=== PATIENT | female | born 1935 | race Caucasian/White ===

== ENCOUNTER → 2016-09-11 | Outpatient (CLI) | payer MEDICARE ==
[2015-09-27 11:00] VITALS: BP 117/45
[~2016-09-11] MED LIST: ACET650S19 PO; AMLO5TAB2 PO; ATOR10TA60 PO; BISA10SU55 RC; ENOX30DI3 SQ; FAMO10TA69 PO; GABA-585 PO; GUAI-297 PO; HYDR12.58 PO; LISI-334 PO; LISI-338 PO; LISI2.5T PO; MAGN400O4 PO; METF500T4 PO; METO25TA4 PO; VALA500T5 PO
--- NOTE | 2016-09-11 16:24 | KCIC ---
PROCEDURE Three views right 3rd finger dated 09/11/16. HISTORY Pain after injury 2 days ago. Slammed door. TECHNIQUE Three views obtained. COMPARISON None. FINDINGS Focal soft tissue swelling at the PIP joint 3rd finger. No underlying displaced fracture. No bony destructive process or periostitis. Mild to moderate degenerate change at the DIP joint and PIP joints throughout. Moderate arthrosis 1st carpometacarpal joint. IMPRESSION - Soft tissue swelling at the 3rd PIP joint with some no evidence of underlying displaced fracture. - Degenerative changes as described above. Electronically signed by: Frankie Bear (Sep 11, 2016 16:22:40)
== END | disposition home or self-care (01) ==
LOC: KCIC 15:40
PROVIDERS: ATTEND Nurse Practitioner Family
DX: M79.644 Pain in right finger(s) (principal); M25.441 Effusion, right hand
CPT/HCPCS: 73140

== ENCOUNTER → 2018-06-10 | Outpatient (CLI) | payer MEDICARE ==
[2015-09-27 11:00] VITALS: BP 117/45
[~2018-06-10] MED LIST changes: +ACET650S PO; -ACET650S19 PO; -AMLO5TAB2 PO; +AMLO5TAB7 PO; -MAGN400O4 PO; +MAGN400O7 PO; +METF500T16 PO; -METF500T4 PO
--- NOTE | 2018-06-10 13:49 | CARD ---
MR#: [id number] Date of Study: 06/10/2018 Ordering Physician: BILL BEAVERS, Referring Physician: BILL BEAVERS, Tech: Zayda Bloom VIDYA APPROVED REPORT EXAM: Two-dimensional and M-mode echocardiogram with Doppler and color Doppler. Other Information Quality : AverageHR: 80bpm Rhythm : NSR INDICATION Murmur 2D DIMENSIONS RVDd2.9 (2.9-3.5cm)Left Atrium(2D)2.6 (1.6-4.0cm) IVSd1.5 (0.7-1.1cm)Aortic Root(2D)2.5 (2.0-3.7cm) LVDd3.6 (3.9-5.9cm)LVOT Diameter1.7 (1.8-2.4cm) PWd0.9 (0.7-1.1cm)LVDs1.7 (2.5-4.0cm) FS (%) 52.2 %SV45.3 ml LVEF(%)84.1 (>50%) M-Mode DIMENSIONS Left Atrium(MM)3.89 (2.5-4.0cm)Aortic Root2.76 (2.2-3.7cm) Aortic Valve AoV Peak Rupesh.149.9cm/sAoV VTI35.1cm AO Peak GR.9.0mmHgLVOT Peak Rupesh.109.2cm/s AO Mean GR.5mmHgAVA (VMAX)1.61cm2 GINNY (VTI)1.60cm2 Mitral Valve MV E Lmpmgmpk297.7cm/sMV E Peak Gr.9mmHg MV DECEL [id number] A Ahtaicmo673.6cm/s MV E Mean Gr.4mmHgE/A Ratio0.7 MV A [id number] Pulmonary Valve PV Peak Dboijlwf844.8cm/s Tricuspid Valve TR P. Ldxplyvn049fv/sRAP OWEAEGJZ4neFt TR Peak Gr.26zyLlJTRR63oeLr Pulmonary Vein S1 Lcgqbzup25.8cm/sD2 Wehfskio54.4cm/s PVa sthforxe75uojt LEFT VENTRICLE The left ventricle is normal size. Proximal septal thickening is noted. The left ventricle is hyperdy namic. The Ejection Fraction is >70%. There is normal LV segmental wall motion. Transmitral Doppler f low pattern is Grade I-abnormal relaxation pattern. RIGHT VENTRICLE The right ventricle is normal size. There is normal right ventricular wall thickness. The right ventr icular systolic function is normal. ATRIA The left atrium is borderline dilated. The right atrium size is normal. The interatrial septum is int act with no evidence for an atrial septal defect or patent foramen ovale as noted on 2-D or Doppler i maging. AORTIC VALVE The aortic valve is calcified but opens well. The aortic valve is trileaflet. Doppler and Color Flow revealed no significant aortic regurgitation. There is no significant aortic valvular stenosis. MITRAL VALVE Mitral annular calcification is mild to moderate. There is systolic anterior motion of the mitral macey ve. There is no evidence of mitral valve prolapse. There is mild mitral valve stenosis. Calculated mi tral valve area is 1.7 cm2 with maximum pressure gradient of 9 mmHg and mean pressure gradient of 4 m mHg. Doppler and Color-flow revealed trace mitral regurgitation. TRICUSPID VALVE The tricuspid valve is normal in structure and function. There is mild tricuspid regurgitation. The P A pressure was estimated at 44 mmHg. There is no tricuspid valve prolapse or vegetation. There is no tricuspid valve stenosis. PULMONIC VALVE Pulmonic valve not well visualized. GREAT VESSELS The aortic root is normal in size. The ascending aorta is normal in size. The IVC is normal in size a nd collapses >50% with inspiration. PERICARDIAL EFFUSION There is no evidence of significant pericardial effusion. Critical Notification Critical Value: No <Conclusion> The left ventricle is hyperdynamic. The Ejection Fraction is >70%. There is normal LV segmental wall motion. Transmitral Doppler flow pattern is Grade I-abnormal relaxation pattern. There is mild mitral valve stenosis with mean gradient 4 mm Hg.. There is mild tricuspid regurgitation. The PA pressure was estimated at 44 mmHg. There is no evidence of significant pericardial effusion. Signed by : Wojciech Fry, Electronically Approved : 06/10/2018 13:47:08
== END | disposition home or self-care (01) ==
LOC: ECHO 12:53
PROVIDERS: ATTEND Family Medicine
DX: I08.1 Rheumatic disorders of both mitral and tricuspid valves (principal)
CPT/HCPCS: 93306

== ENCOUNTER → 2018-06-12 | Outpatient (CLI) | payer MEDICARE ==
[2015-09-27 11:00] VITALS: BP 117/45
[~2018-06-12] MED LIST changes: +AMLO5TAB10 PO; -AMLO5TAB7 PO
--- NOTE | 2018-06-12 10:39 | RAD ---
Exam : Carotid Duplex with Grayscale Ultrasound and Spectral and Color Doppler Analysis 06/12/2018 10:28 AM Clinical Indications: ARTERIOSCLEROSIS Comparison study: Carotid ultrasound: December 08, 2013. RS Compliance Statement - Stenosis calculations for CT, MR and conventional angiography are based upon measurement of the distal ICA diameter in accordance with the NASCET methodology. Stenosis calculations for carotid ultrasound studies are derived from validated velocity criteria which are known to correlate with the NASCET methodology. Findings: The common, internal and external carotid arteries were examined by grayscale, color and spectral Doppler ultrasound. There is moderate diffuse atherosclerotic vascular disease. More bulky atherosclerotic plaque is seen in the right carotid bulb. The ostium of the left ICA is difficult to visualize secondary to shadowing plaque. The following are the velocities and ratios in the carotid arteries on both sides: RIGHT ICA PV: 420 cm/sec RIGHT CCA PV: 69cm/sec RIGHT ICA ED: 65cm/sec RIGHT IC/CCPV: 6.1 RIGHT VERTEBRAL: antegrade flow LEFT ICA PV: 134cm/sec LEFT CCA PV: 110cm/sec LEFT ICA ED: 24cm/sec LEFT IC/CCPV: 1.2 LEFT VERTEBRAL: antegrade flow <50% ICA Stenosis: PSV < 125cm/s (EDV < 40cm/s; SVR < 2.0) 50-69% ICA Stenosis: PSV < 125-229cm/s (EDV 40-99cm/s; SVR 2.0-3.9) >70% ICA Stenosis: PSV > 230cm/s (EDV >100cm/s; SVR >4.0) Impression: 1. Greater than 70% , proximal right internal carotid artery. Further characterization with CTA recommended. 2. There is limited visualization of the left ICA ostium. Velocity measurements suggest at least 50-70 percent stenosis in the left internal carotid artery. Attention on CTA recommended. 3. Diffuse atherosclerotic vascular disease Electronically signed by: Feroz Becerra MD (06/12/2018 10:34 AM) [id number]
--- NOTE | 2018-06-12 12:37 | RAD ---
Complete abdominal ultrasound 06/12/2018 9:10 AM Clinical History: Abdominal bruit Technique: Ultrasound examination of the abdomen was performed, and multiple static images were submitted for review. Comparison: Abdominal CT SeptemberSeptember 19 2015. Findings: Pancreas is poorly visualized. Aorta and IVC are poorly visualized. Liver measures 14 cm longitudinally. Portal venous flows normal direction. The liver demonstrates a mildly increased echotexture. Hepatic steatosis not excluded. The the common bile duct is poorly visualized. Visualized CBD measures up to 8 mm in diameter which is within normal limits given patient age and prior removal of the gallbladder. Right kidney is unremarkable in appearance measuring 9.5 cm in length. The spleen is normal in size during 7.5 cm in length. Left kidney is somewhat echogenic in appearance with areas of thinning cortex measuring 9 cm in length. There is a renal atrophy on the left are noted on prior CT scan. IMPRESSION: 1. No sonographic evidence of acute intra-abdominal abnormality 2. Possible mild hepatic steatosis 3. Mild left renal atrophy 4. Based on provided history, is there is concern for an abdominal aortic aneurysm or other vascular pathology, CTA may be helpful for further characterization. The patient has known significant atherosclerotic vascular calcification however no aneurysm is seen on prior CT from September 2015. Electronically signed by: Feroz Becerra MD (06/12/2018 12:33 PM) [id number]
== END ==
LOC: US 09:01
PROVIDERS: ATTEND Family Medicine
DX: I65.23 Occlusion and stenosis of bilateral carotid arteries (principal); I12.9 Hypertensive chronic kidney disease with stage 1 through stage 4 chronic kidney disease, or unspecified chronic kidney disease; N18.3 Chronic kidney disease, stage 3 (moderate)
CPT/HCPCS: 76700; 93880

== ENCOUNTER → 2021-01-23 | Outpatient (CLI) | payer MEDICARE ==
[2021-01-19 15:00] VITALS: BP 134/50
[~2021-01-23] MED LIST changes: +AMLO-186 PO; -AMLO5TAB10 PO; +DOCU-109 PO; +FAMO-152 PO; -FAMO10TA69 PO; +LACT1CAP19 PO; -LISI-334 PO; -LISI-338 PO; +LISI-517 PO; -LISI2.5T PO; +LISI2.5T12 PO; +LISI20TA18 PO; +LOPE2TAB27 PO; +PANT40TA77 PO; +PSYL0.5215 PO
[2021-01-23 15:22] LABS: BASO # 0.1 x10^3/uL (0.0-0.2); BASO % 1 % (0-3); EOS # 0.1 x10^3/uL (0.0-0.7); EOS % 1 % (0-3); HEMATOCRIT 37.5 % (36.0-47.0); HEMOGLOBIN 12.3 g/dL (12.0-15.5); LYMPH # 1.6 x10^3/uL (1.0-4.8); LYMPH % 15 % (24-48); MEAN CORPUSCULAR HEMOGLOBIN 32 pg (25-35); MEAN CORPUSCULAR HGB CONC 33 g/dL (31-37); MEAN CORPUSCULAR VOLUME 96 fL (79-100); MONO # 0.9 x10^3/uL (0.0-1.1); MONO % 8 % (0-9); NEUT # 8.4 x10^3/uL (1.8-7.7); NEUT % 76 % (31-73); PLATELET COUNT 331 x10^3/uL (140-400); RED BLOOD COUNT 3.92 x10^6/uL (3.50-5.40); RED CELL DISTRIBUTION WIDTH 16.7 % (11.5-14.5); WHITE BLOOD COUNT 11.1 x10^3/uL (4.0-11.0)
[2021-01-23 16:22] LABS: CALCIUM 8.8 mg/dL (8.5-10.1); GFR 52.4; POTASSIUM 4.7 mmol/L (3.5-5.1)
[2021-01-23 16:23] LABS: ALBUMIN 2.6 g/dL (3.4-5.0); ALBUMIN/GLOBULIN RATIO 0.7 (1.0-1.7); TOTAL BILIRUBIN 0.7 mg/dL (0.2-1.0); TOTAL PROTEIN 6.3 g/dL (6.4-8.2)
== END ==
LOC: ONCLAB 14:55
PROVIDERS: ATTEND Internal Medicine Hematology & Oncology
DX: C83.33 Diffuse large B-cell lymphoma, intra-abdominal lymph nodes (principal)
CPT/HCPCS: 36415; 80053; 83615; 85025

== ENCOUNTER → 2021-01-27 | Outpatient (CLI) | payer MEDICARE ==
[2021-01-19 15:00] VITALS: BP 134/50
--- NOTE | 2021-01-27 13:35 | RAD ---
EXAM: Dual modality PET-CT Scan DATE: 01/27/2021 RADIOPHARMACEUTICAL: 15 mCi F-18 fluorodeoxyglucose (FDG) IV. CLINICAL HISTORY: Lymphoma staging. COMPARISON: 01/18/2021 TECHNIQUE: Approximately 45 minutes after tracer administration, routine, attenuation-corrected Posit paddy Emission Tomography (PET) images were obtained from the level of the base of the skull through th e level of the mid thighs. Tomographic reconstructions are reviewed in coronal, transaxial and sagitt al planes. Non-contrast CT imaging was performed for attenuation correction and localization purpose s only. These images do not constitute a diagnostic-quality CT examination and were not used to diag nose disease independently of the PET images. The blood glucose level was 90 mg/dL at the time of FDG administration. *One or more of the following individualized dose reduction techniques were utilized for this examina tion: 1. Automated exposure control. 2. Adjustment of the mA and/or kV according to patient size. 3. Use of iterative reconstruction technique. FINDINGS: There is intense radiotracer activity associated with conglomerate lymphadenopathy througho ut the root of the mesentery. The largest conglomerate of lymph nodes within the mesentery measures a pproximately 9.0 cm with a maximum SUV of 18.2. The additional areas of mesenteric lymphadenopathy de monstrated in maximum SUV of 15.5. There is conglomerate radiotracer avid lymphadenopathy within the left retroperitoneum with a maximum SUV of 15.7 and within the left retrocrural distribution with an SUV of 18.8 and within the left distal paraesophageal distribution with an SUV of 20.2. There is no a bnormal radiotracer activity involving the mediastinum, bilateral melissa, neck, axillae, iliac chain or inguinal regions. There is a small focus of increased radiotracer activity within SUV of 4.4 associa herman with a 1.3 cm nodule within the subcutaneous fat at the posterior base of the left neck overlying the trapezius muscle. There is expected tracer activity within the bowel and renal collecting system . The CT portion of the exam demonstrates conglomerate lymphadenopathy within the root of the mesentery measuring approximately 9 cm in maximum dimension and difficult to separate from adjacent loops of b owel. This lymphadenopathy is encased traversing abdominal aortic branch vessels. There is additional conglomerate lymphadenopathy within the left descending thoracic periaortic and retrocrural distribu tion as well as left superior retroperitoneum. There is no lymphadenopathy involving the neck, medias tinum, melissa, axillae, right retroperitoneum, iliac bifurcation or inguinal regions. There are moderate to large left and small right pleural effusions. There is partial left lower lobe collapse. There is emphysema. There is nonspecific groundglass opacity within both lungs likely due t o interstitial infiltrate or congestion. There are calcified granulomas and there is pleural parenchy mal scarring. The heart is normal in size. There is aortic and aortic branch vessel atherosclerosis. There is dense calcification of the mitral valve annulus. The visualized portions of the brain demonstrate no mass effect or midline shift. There is heavily calcified plaque involving the carotid bifurcations. No thy roid lesion is seen. No hepatic lesion is seen. The gallbladder is absent. There is biliary ductal dilatation likely due t o reservoir effect. There is a small proximal duodenal diverticulum. No convincing pancreatic lesion is seen, difficult to assess in the absence of contrast. The spleen is normal in size. No adrenal gla nd lesion is seen. There is renal atrophy and renal cortical scarring. No abnormally dilated loop of bowel is seen. There is distal colonic diverticulosis. The bladder, uterus and adnexal regions are un remarkable. There is degenerative change throughout the spine and involving both shoulders and hips. There is incidental torus palatini. There is no acute or suspicious osseous finding. There is bone de mineralization. IMPRESSION: 1. Conglomerate radiotracer avid lymphadenopathy involving the mesentery, left retroperitoneum, and l eft retrocrural and left distal paraesophageal distributions with maximum SUVs ranging from 15.5-20.2 as described in detail above. This is consistent with reported lymphoma. 2. No evidence of radiotracer avid lymphadenopathy involving the neck, mediastinum, melissa, axillary or inguinal regions or iliac chain. 3. Small radiotracer avid nodule within the posterior base of the left neck subcutaneous fat overlyin g the trapezius muscle with an SUV of 4.4. This may be a lymph node or inflammatory/infectious in jeremy ology. 4. Please refer to the above report for additional findings regarding the non-PET portion of the exam . Electronically signed by: Gabi Felix MD (01/27/2021 1:32 PM) [id number]
== END ==
LOC: PETSC 10:30
PROVIDERS: ATTEND Internal Medicine Hematology & Oncology
DX: C83.33 Diffuse large B-cell lymphoma, intra-abdominal lymph nodes (principal); I34.0 Nonrheumatic mitral (valve) insufficiency; J43.9 Emphysema, unspecified; J90 Pleural effusion, not elsewhere classified; J84.10 Pulmonary fibrosis, unspecified; I65.29 Occlusion and stenosis of unspecified carotid artery; I70.0 Atherosclerosis of aorta; N26.1 Atrophy of kidney (terminal); K57.10 Diverticulosis of small intestine without perforation or abscess without bleeding; Z90.49 Acquired absence of other specified parts of digestive tract
CPT/HCPCS: 78815; A9552